=== PATIENT | female | born 1955 | race Caucasian/White ===

== ENCOUNTER 2018-06-18 16:07 | Emergency (ER) | payer OTHER ==
[~2018-06-18] VITALS: Ht 149.9 cm; Wt 74.4 kg
[~2018-06-18 16:07] MED LIST: ACYCLOVIR800 MG PO; CIPRO750 MG PO; DIOVAN40 MG; FLEXERIL10 MG PO; HYZAAR 100-251 UDTAB; LEVAQUIN750 MG PO; NABUMETONE750 MG PO; NEURONTIN300 MG PO; TUSICOF LIQUID120 ML PO; TUSSI PRES-B L120 M1 PO; XOPENEX HFA15 GM IH; ZOSTRIX TP
[2018-06-18] MEDS ORDERED: ASPIR 8181 MG PO (16:19)
[2018-06-18] MEDS ORDERED: AVALIDE 300-121 EACH PO (16:19)
[2018-06-18] MEDS ORDERED: ZOCOR5 MG PO (16:19)
[2018-06-18] MEDS ORDERED: PEPCID AC20 MG PO (22:25)
[2018-06-18] MEDS ORDERED: ZOFRAN ODT4 MG SL (22:25)
[2018-06-18] MEDS ORDERED: CELECOXIB100 MG PO (22:25)
== END 2018-06-18 22:39 | disposition home or self-care (01) ==
LOC: ER 16:07 → CPU-OBS 16:10 → ER 22:39
DX: R07.89 Other chest pain (principal); K29.00 Acute gastritis without bleeding; M94.0 Chondrocostal junction syndrome [Tietze]

== ENCOUNTER 2018-06-20 08:57 | Emergency (ER) | payer OTHER ==
[~2018-06-20] VITALS: Ht 149.9 cm; Wt 76.2 kg
[~2018-06-20 08:57] MED LIST changes: +ASPIR 8181 MG PO; +AVALIDE 300-121 EACH PO; +CELECOXIB100 MG PO; +PEPCID AC20 MG PO; +ZOCOR5 MG PO; +ZOFRAN ODT4 MG SL
== END 2018-06-20 20:10 | disposition home or self-care (01) ==
LOC: ER 08:57
DX: K52.89 Other specified noninfective gastroenteritis and colitis (principal)

== ENCOUNTER 2020-11-25 11:34 | Emergency (ER) | payer OTHER ==
[~2020-11-25] VITALS: Ht 149.9 cm; Wt 72.6 kg
[2020-11-25] MEDS ORDERED: COZAAR50 MG (11:46)
[2020-11-25] MEDS ORDERED: HYDROCHLOROTHIA25 MG (11:47)
== END 2020-11-25 15:42 | disposition home or self-care (01) ==
LOC: ER 11:34
DX: R05 Cough (principal); B96.0 Mycoplasma pneumoniae [M. pneumoniae] as the cause of diseases classified elsewhere

== ENCOUNTER → 2021-04-26 | Emergency (ER) | payer OTHER ==
[~2021-04-26] VITALS: Ht 152.4 cm; Wt 65.8 kg
[~2021-04-26] MED LIST changes: +COZAAR50 MG; +HYDROCHLOROTHIA25 MG
== END | disposition left against medical advice (07) ==
LOC: ER 04:27
DX: Z53.20 Procedure and treatment not carried out because of patient's decision for unspecified reasons (principal)

== ENCOUNTER 2021-05-16 23:14 | Emergency (ER) | payer OTHER ==
[~2021-05-16] VITALS: Ht 149.9 cm; Wt 72.6 kg
[2021-05-17] MEDS ORDERED: NORVASC2.5 M1 (00:03)
[2021-05-17] MEDS ORDERED: CIPRO500 MG PO (04:01)
[2021-05-17] MEDS ORDERED: KETO10TA2 PO (04:01)
== END 2021-05-17 05:57 | disposition home or self-care (01) ==
LOC: ER 23:14 → EDBD 23:28 → ER 23:28
DX: N20.0 Calculus of kidney (principal)

== ENCOUNTER 2021-09-02 23:26 | Emergency (ER) | payer OTHER ==
[~2021-09-02] VITALS: Ht 149.9 cm; Wt 74.8 kg
[~2021-09-02 23:26] MED LIST changes: +CIPRO500 MG PO; +KETO10TA2 PO; +NORVASC2.5 M1
== END 2021-09-03 13:16 | disposition home or self-care (01) ==
LOC: ER 23:26
DX: K52.9 Noninfective gastroenteritis and colitis, unspecified (principal); K62.5 Hemorrhage of anus and rectum; K76.0 Fatty (change of) liver, not elsewhere classified; K65.4 Sclerosing mesenteritis

== ENCOUNTER 2022-04-25 23:26 | Emergency (ER) | payer OTHER ==
[~2022-04-25] VITALS: Ht 149.9 cm; Wt 74.8 kg
[2022-04-26] MEDS ORDERED: TRILEPTAL150 MG PO (00:13)
[2022-04-26] MEDS ORDERED: NORFLEX100MG PO (07:47)
== END 2022-04-26 08:12 ==
LOC: ER 23:26
DX: R51.9 Headache, unspecified (principal)

== ENCOUNTER 2022-06-17 09:38 | Outpatient (CLI) | payer OTHER ==
[~2022-06-17 09:38] MED LIST changes: +NORFLEX100MG PO; +TRILEPTAL150 MG PO
== END 2022-06-17 10:11 | disposition home or self-care (01) ==
LOC: RAD 09:38
PROVIDERS: ATTEND Specialist
DX: R13.14 Dysphagia, pharyngoesophageal phase (principal)

== ENCOUNTER 2022-11-10 15:58 | Emergency (ER) | payer OTHER ==
[~2022-11-10] VITALS: Ht 149.9 cm; Wt 69.9 kg
[2022-11-10] MEDS ORDERED: HYDROCHLOROTHIA25 MG PO (16:19)
[2022-11-10] MEDS ORDERED: SIMVASTATIN20 MG PO (16:20)
== END 2022-11-10 22:14 | disposition home or self-care (01) ==
LOC: ER 15:58
DX: R10.9 Unspecified abdominal pain (principal); E78.00 Pure hypercholesterolemia, unspecified; I10 Essential (primary) hypertension; N20.0 Calculus of kidney

== ENCOUNTER 2022-11-12 17:58 | Emergency (ER) | payer OTHER ==
[~2022-11-12] VITALS: Ht 149.9 cm; Wt 69.9 kg
[~2022-11-12 17:58] MED LIST changes: +HYDROCHLOROTHIA25 MG PO; +SIMVASTATIN20 MG PO
== END 2022-11-13 02:19 | disposition home or self-care (01) ==
LOC: ER 17:58
DX: R10.2 Pelvic and perineal pain (principal); I10 Essential (primary) hypertension; E78.00 Pure hypercholesterolemia, unspecified

== ENCOUNTER 2024-03-26 07:18 | Outpatient (CLI) | payer OTHER | END 2024-03-26 07:25 | disposition home or self-care (01) | LOC: MRI 07:18 | PROVIDERS: ATTEND Psychiatry & Neurology Neurology | DX: D32.0 Benign neoplasm of cerebral meninges (principal) | CPT/HCPCS: 70553; Q9965 ==

== ENCOUNTER 2024-04-22 08:27 | Outpatient (CLI) | payer OTHER | END 2024-04-22 08:35 | disposition home or self-care (01) | LOC: TOM 08:27 | PROVIDERS: ATTEND Specialist | DX: E28.0 Estrogen excess (principal) | CPT/HCPCS: 74160; Q9965 ==

== ENCOUNTER 2024-05-26 08:24 | Outpatient (CLI) | payer OTHER | END 2024-05-26 08:25 | disposition home or self-care (01) | LOC: NUCLEAR 08:24 | PROVIDERS: ATTEND Urology | DX: N13.1 Hydronephrosis with ureteral stricture, not elsewhere classified (principal) | CPT/HCPCS: 78709; A9539 ==